=== PATIENT | female | born 1935 | race Caucasian/White ===

== ENCOUNTER → 2016-10-08 | Outpatient (CLI) | payer MEDICARE ==
[~2016-10-08] MED LIST: AMINOPHYLLIN200 MG PO; AMLODIPINE BESY10 MG PO; ASPIRIN81 M1 PO; B-121000 MCG PO; B-12500 MC1 PO; BRILINTA90 M1 PO; CALCIUM 600600 M2 PO; COREG3.125 MG PO; COZAAR25 M1 PO; DITROPAN XL5 MG PO; FENOFIBRATE145 M1 PO; GLUCOPHAGE1000 MG PO; GLUCOPHAGE500 M1 PO; HYDROCHLOROTHIA25 M1 PO; LEVOFLOXACIN500 MG PO; METFORMIN500 MG PO; METOPROLOL SUCC50 M2 PO; NATURE'S BLEND500 M1 PO; PHARMASSURE FO0.8 MG PO; PLAVIX75 M1 PO; POTASSIUM GLUC550 M1 PO; SIMVASTATIN20 MG PO; SYNTHROID0.137 MG PO; Synthroid,Lev125 MCG PO; TRICOR48 MG PO; ZOCOR40 MG PO
[2016-10-08 09:30] LABS: HEMOGLOBIN A1c 5.6 % (4.8-5.6)
[2016-10-08 09:49] LABS: ALBUMIN 3.8 gm/dl (3.1-4.5); BILIRUBIN, TOTAL 0.4 mg/dl (0.2-1.0); PHOSPHOROUS 3.5 mg/dL (2.5-4.9); POTASSIUM 4.4 mmol/L (3.5-5.1); TOTAL PROTEIN 7.1 gm/dL (6.4-8.2)
[2016-10-08 09:54] LABS: THYROID STIM HORMONE (HS) 2.7 uIU/ml (0.358-4.75)
[2016-10-08 10:11] LABS: VITAMIN D, 25-HYDROXY 46.3 ng/mL (30-100)
== END | disposition home or self-care (01) ==
LOC: LAB 08:36
PROVIDERS: Internal Medicine Endocrinology, Diabetes & Metabolism
DX: E11.9 Type 2 diabetes mellitus without complications (principal); E03.9 Hypothyroidism, unspecified; I10 Essential (primary) hypertension; E78.5 Hyperlipidemia, unspecified; E53.9 Vitamin B deficiency, unspecified; E55.9 Vitamin D deficiency, unspecified; R29.890 Loss of height; E78.00 Pure hypercholesterolemia, unspecified; F41.1 Generalized anxiety disorder

== ENCOUNTER → 2017-01-07 | Outpatient (CLI) | payer MEDICARE ==
[2017-01-07 10:14] LABS: HEMATOCRIT 42.6 % (37.0-47.0); HEMOGLOBIN 13.7 g/dl (12.0-16.0); MEAN CELL VOLUME 95.1 fl (81.0-99.0); MEAN CORPUSCULAR HGB 30.6 pg (27.0-31.0); MEAN CORPUSCULAR HGB CONC 32.2 g/dl (33.0-37.0); RED BLOOD COUNT 4.48 10*6/uL (4.10-5.10); RED CELL DISTRI WIDTH 13.7 % (0-14.5); WHITE BLOOD COUNT 5.5 10*3/uL (4.8-10.8)
[2017-01-07 10:36] LABS: HEMOGLOBIN A1c 5.8 % (4.8-5.6)
[2017-01-07 10:45] LABS: ALBUMIN 3.9 gm/dl (3.1-4.5); ALKALINE PHOSPHATASE 43 U/L (45-117); BILIRUBIN, TOTAL 0.5 mg/dl (0.2-1.0); BUN 25 mg/dl (7-24); CARBON DIOXIDE 28 mmol/L (21-32); CHLORIDE 107 mmol/L (98-107); CHOLESTEROL 132 mg/dL (<200); EST GLOM FILT AFRICAN AMERICAN > 60 ml/min; GLUCOSE 111 mg/dL (65-99); HDL CHOLESTEROL 65 mg/dl (40-60); LDL CHOLESTEROL 53 mg/dL (9-159); MAGNESIUM 1.8 mg/dL (1.5-2.1); PHOSPHOROUS 3.4 mg/dL (2.5-4.9); POTASSIUM 4.3 mmol/L (3.5-5.1); SGOT/AST 23 IU/L (3-35); SGPT/ALT 16 U/L (12-78); SODIUM 141 mmol/L (136-145); TOTAL PROTEIN 7.2 gm/dL (6.4-8.2); TRIGLYCERIDES 70 mg/dl (<150); VLDL CHOLESTEROL 14 mg/dL (6-40)
[2017-01-07 10:50] LABS: CEA 2.5 ng/mL
[2017-01-07 11:07] LABS: VITAMIN D, 25-HYDROXY 47.8 ng/mL (30-100)
== END | disposition home or self-care (01) ==
LOC: LAB 09:22
PROVIDERS: Internal Medicine Endocrinology, Diabetes & Metabolism
DX: Z13.220 Encounter for screening for lipoid disorders (principal); E11.9 Type 2 diabetes mellitus without complications; I10 Essential (primary) hypertension; E78.5 Hyperlipidemia, unspecified; E03.9 Hypothyroidism, unspecified; E53.9 Vitamin B deficiency, unspecified; E55.9 Vitamin D deficiency, unspecified; R29.890 Loss of height; M19.90 Unspecified osteoarthritis, unspecified site

== ENCOUNTER → 2017-04-29 | Outpatient (CLI) | payer MEDICARE ==
[2017-04-29 09:37] LABS: POTASSIUM 4.4 mmol/L (3.5-5.1)
[2017-04-29 10:03] LABS: CREATININE 1.41 mg/dL (0.55-1.02); FREE T4 1.39 ng/dl (0.76-1.46); PHOSPHOROUS 3.7 mg/dL (2.5-4.9); THYROID STIM HORMONE (HS) 4.38 uIU/ml (0.358-4.75)
[2017-04-29 10:53] LABS: VITAMIN D, 25-HYDROXY 42.2 ng/mL (30-100)
== END ==
LOC: LAB 08:24
PROVIDERS: Family Medicine
DX: E03.9 Hypothyroidism, unspecified (principal); I10 Essential (primary) hypertension; E11.9 Type 2 diabetes mellitus without complications; E78.5 Hyperlipidemia, unspecified; E53.9 Vitamin B deficiency, unspecified; E55.9 Vitamin D deficiency, unspecified; R29.890 Loss of height

== ENCOUNTER 2017-06-14 12:45 | Emergency (ER) | payer MEDICARE ==
[~2017-06-14] VITALS: Ht 157.4 cm; Wt 61.7 kg
[2017-06-14 13:19] LABS: BASO # 0.1 10*3/uL (0.0-0.1); BASO % 0.8 % (0.0-1.0); EOS # 0.4 10*3/uL (0.0-0.4); HEMATOCRIT 41.2 % (37.0-47.0); HEMOGLOBIN 13.4 g/dl (12.0-16.0); LYMPH # 1.3 10*3/uL (1.3-4.4); LYMPH % 17.7 % (27.0-41.0); MEAN CELL VOLUME 94.5 fl (81.0-99.0); MEAN CORPUSCULAR HGB 30.7 pg (27.0-31.0); MEAN CORPUSCULAR HGB CONC 32.5 g/dl (33.0-37.0); MEAN PLATELET VOLUME 9.5 fl (9.6-12.3); MONO # 0.7 10*3/uL (0.1-1.0); MONO % 9.1 % (3.0-9.0); NEUT # 4.8 10*3/uL (2.3-7.9); NEUT % 66.1 % (47.0-73.0); PLATELET COUNT AUTOMATED 217 10*3/uL (130-400); RED BLOOD COUNT 4.36 10*6/uL (4.10-5.10); RED CELL DISTRI WIDTH 13.3 % (0-14.5); WHITE BLOOD COUNT 7.3 10*3/uL (4.8-10.8)
[2017-06-14 13:29] LABS: ACT PARTIAL THROMBO TIME 23.4 SECONDS (20.8-31.5)
[2017-06-14 13:34] LABS: ALBUMIN 3.8 gm/dl (3.1-4.5); CREATININE 1.22 mg/dL (0.55-1.02); POTASSIUM 4.3 mmol/L (3.5-5.1); TOTAL PROTEIN 7.5 gm/dL (6.4-8.2)
[2017-06-14 13:35] LABS: TROPONIN I 0.019 ng/ml (<0.045)
[2017-06-14 16:51] VITALS: BP 159/67
== END 2017-06-14 17:25 | disposition home or self-care (01) ==
LOC: ED 12:45
PROVIDERS: Nurse Practitioner Family
DX: Z45.02 Encounter for adjustment and management of automatic implantable cardiac defibrillator (principal); E11.22 Type 2 diabetes mellitus with diabetic chronic kidney disease; I13.0 Hypertensive heart and chronic kidney disease with heart failure and stage 1 through stage 4 chronic kidney disease, or unspecified chronic kidney disease; I50.20 Unspecified systolic (congestive) heart failure; N18.3 Chronic kidney disease, stage 3 (moderate); E78.00 Pure hypercholesterolemia, unspecified; E03.9 Hypothyroidism, unspecified; Z79.899 Other long term (current) drug therapy; Z79.84 Long term (current) use of oral hypoglycemic drugs; Z90.710 Acquired absence of both cervix and uterus; Z90.49 Acquired absence of other specified parts of digestive tract

== ENCOUNTER 2017-07-31 19:48 | Inpatient (IN) | payer MEDICARE ==
[~2017-07-31] VITALS: Ht 157.4 cm; Wt 60.1 kg
--- NOTE | ~2017-07-31 | PR ---
[place], [place] PROGRESS NOTE NAME: PRASANTH REAL [facility] #: [id number] UNIT #: [id number] ROOM: 408 DOCTOR: KATIE MARTINEZ MD BIRTHDATE: [birth year] DOS: 08/02/2017 SUBJECTIVE: The patient is sitting up in a chair, resting, does not appear to be in any distress, does not have any complaints. Daughter is with her. PHYSICAL EXAMINATION: VITAL SIGNS: Blood pressure is 148/56, pulse of 60, respirations 18, temperature 97.9. LUNGS: Diminished breath sounds. HEART: Regular. ABDOMEN: Obese, soft, nontender. EXTREMITIES: Without any edema. LABORATORY DATA: Echocardiogram done yesterday shows an ejection fraction of only 20-25% and according to the echo report from before that was read by Dr. Ledbetter, there was no change and the ejection fraction was only about 20-25%. ASSESSMENT AND PLAN: 1. Cardiomyopathy with history of AICD placement, followed by Dr. Ledbetter. The patient and her daughter was upset that Dr. Ledbetter was not informed, so we will consult the previous junior systems administrator consult and place consult to Dr. Ledbetter. 2. Chest pain. The patient comes in with a heavy sensation in the chest. The recommendation was to do a stress test, which she had refused and she is unable to do regular walking stress test, so I will wait for Dr. Ledbetter to decide the plan of care for this patient. KATIE MARTINEZ MD CM:PNTRANS [id number] KATIE MARTINEZ MD 08/02/17 0921 interface
--- NOTE | ~2017-07-31 | WRIGHTHP ---
[place], [place] PATIENT HISTORY AND PHYSICAL EXAM NAME: PRASANTH REAL [facility] #: [id number] UNIT #: [id number] ROOM: 408 DOCTOR: ANGEL VELASCO MD BIRTHDATE: [birth year] DOS: 07/31/2017 HISTORY OF PRESENT ILLNESS: The patient is an 82-year-old female with a past medical history of: 1. Type 2 diabetes mellitus. 2. Benign essential hypertension. 3. Mixed hyperlipidemia. 4. Hypothyroidism. 5. 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 6. Internal cardiac defibrillator placement. 7. Chronic systolic type congestive heart failure. The patient presented to [facility] Emergency Department with complaints of heaviness sensation in her chest lasting about an hour, which resolved with giving her sublingual nitroglycerin, metoprolol and oxygen. The patient is asymptomatic now. The patient says she has previous history of coronary artery disease, but she does not want any further testing or treatment for it. After admission, the patient's troponin I levels went slightly high at 0.072, but now they are improving and the patient has been seen by plant operations engineer. The patient also complains of some swelling in the hands and feet, which is not evident now. REVIEW OF SYSTEMS: LUNGS: No increasing shortness of breath. GASTROINTESTINAL: No nausea, vomiting, diarrhea or constipation. CARDIOVASCULAR SYSTEM: Complains of heaviness in the chest for an hour. FAMILY HISTORY: Noncontributory. SOCIAL HISTORY: The patient lives at home with the help of her grandson.. ALLERGIES: No known drug allergies. HOME MEDICATIONS: The patient is taking losartan, Coreg, metformin, Plavix, aspirin, levothyroxine. PHYSICAL EXAMINATION: GENERAL: The patient is alert and oriented x 3, in no visible distress. HEENT AND NECK: Extraocular movements are intact. Sclerae are anicteric. Oral mucosa is moist and clean. No obvious facial weakness. Neck is supple without any lymphadenopathy. No thyromegaly. No JVD. No carotid arterial bruits. LUNGS: Clear to auscultation. No wheezing. No rhonchi. CARDIOVASCULAR SYSTEM: Heart rate is regular in rate and rhythm. S1 and S2 normally audible. No significant murmur or any other abnormal cardiac sounds. ABDOMEN: Soft, nontender. No obvious organomegaly. Bowel sounds are present. No obvious herniation. EXTREMITIES: Without significant cyanosis or edema. Warm to touch. CENTRAL NERVOUS SYSTEM: Alert and oriented x 3. Cranial nerves II-XII are intact. Speech is normal. The patient is able to move all extremities. Normal [place], [place] PATIENT HISTORY AND PHYSICAL EXAM [facility]: [id number] UNIT #: [id number] ROOM: [facility] DOCTOR: ANGEL VELASCO MD BIRTHDATE: [birth year] muscle strength. Deep tendon reflexes are equal on both sides. Plantars were downgoing. IMPRESSION AND PLAN: 1. Slight elevation of troponin I levels up to 0.072, now reduced to 0.047 with complaints of heaviness in her chest prior to admission. The patient is symptom free now. The patient seen by Cardiology and she has completely refused any further testing except for she will allow an echocardiogram for further evaluation. Cardiology wants to treat her conservatively considering her request. The patient is already on aspirin and Plavix and her treatment for ischemic cardiomyopathy is being optimized and hopefully she can be discharged to home if asymptomatic in a couple of days. 2. History of coronary artery disease of the sioux vessels with ischemic cardiomyopathy and reduced left ventricular ejection fraction. Echocardiogram is pending. The patient has implantable cardioverter-defibrillator placement. 3. Benign essential hypertension. Blood pressure will be monitored and treated. 4. Mixed hyperlipidemia, will be followed and treated. 5. Type 2 diabetes mellitus. Blood sugar is to be checked and controlled. 6. The patient is being monitored carefully in the hospital. ANGEL VELASCO MD CM:HISPHYS:PATIENT HISTORY AND PHYSICAL EXAMINATION ANGEL VELASCO MD 08/01/1747 interface
[2017-07-31 19:50] VITALS: BP 166/77
[2017-07-31 20:15] LABS: BASO % 0.7 % (0.0-1.0); EOS # 0.4 10*3/uL (0.0-0.4); EOS % 6.3 % (1.0-4.0); HEMATOCRIT 38.7 % (37.0-47.0); HEMOGLOBIN 12.8 g/dl (12.0-16.0); LYMPH # 1.3 10*3/uL (1.3-4.4); LYMPH % 21.3 % (27.0-41.0); MEAN CELL VOLUME 94.9 fl (81.0-99.0); MEAN CORPUSCULAR HGB 31.4 pg (27.0-31.0); MEAN CORPUSCULAR HGB CONC 33.1 g/dl (33.0-37.0); MEAN PLATELET VOLUME 9.5 fl (9.6-12.3); MONO # 0.6 10*3/uL (0.1-1.0); MONO % 9.4 % (3.0-9.0); NEUT # 3.7 10*3/uL (2.3-7.9); PLATELET COUNT AUTOMATED 178 10*3/uL (130-400); RED BLOOD COUNT 4.08 10*6/uL (4.10-5.10); RED CELL DISTRI WIDTH 13.1 % (0-14.5); WHITE BLOOD COUNT 5.9 10*3/uL (4.8-10.8)
[2017-07-31 20:25] LABS: ACT PARTIAL THROMBO TIME 23.9 SECONDS (20.8-31.5)
[2017-07-31 20:33] LABS: ALBUMIN 3.7 gm/dl (3.1-4.5); CREATININE 1.61 mg/dL (0.55-1.02); POTASSIUM 4.4 mmol/L (3.5-5.1); TROPONIN I 0.025 ng/ml (<0.045)
[2017-07-31 21:21] VITALS: BP 166/71
[2017-07-31 22:20] VITALS: BP 156/58
[2017-07-31] MEDS ORDERED: TRICOR145 M1 PO (23:03)
[2017-07-31] MEDS ORDERED: CLOPIDOGREL75 MG PO (23:04)
[2017-07-31] MEDS ORDERED: ASPIR LOW81 MG PO (23:04)
[2017-07-31] MEDS ORDERED: NITROSTAT0.3 M1 SL ×2 (23:17→23:20)
[2017-08-01 08:00] VITALS: BP 142/74
[2017-08-01 11:43] VITALS: BP 144/61
[2017-08-01 16:00] VITALS: BP 160/59
[2017-08-01 20:00] VITALS: BP 133/57
[2017-08-02] VITALS: BP 148/56
[2017-08-02 06:55] LABS: CREATININE 1.45 mg/dL (0.55-1.02); POTASSIUM 3.8 mmol/L (3.5-5.1)
[2017-08-02] MEDS ORDERED: LASIX20 MG PO (11:30)
[2017-08-02 12:00] VITALS: BP 130/59
== END 2017-08-02 13:35 | disposition home or self-care (01) | DRG 303 ==
LOC: ED 19:48 → 4E 21:23 → EDHOLD 21:23 → 4E 21:50
PROVIDERS: Emergency Medicine Emergency Medical Services; Internal Medicine Cardiovascular Disease
DX: I25.10 Atherosclerotic heart disease of native coronary artery without angina pectoris (principal); E11.22 Type 2 diabetes mellitus with diabetic chronic kidney disease; I50.22 Chronic systolic (congestive) heart failure; I13.0 Hypertensive heart and chronic kidney disease with heart failure and stage 1 through stage 4 chronic kidney disease, or unspecified chronic kidney disease; I25.5 Ischemic cardiomyopathy; E86.1 Hypovolemia; F41.9 Anxiety disorder, unspecified; E78.2 Mixed hyperlipidemia; N18.3 Chronic kidney disease, stage 3 (moderate); E78.00 Pure hypercholesterolemia, unspecified; M81.0 Age-related osteoporosis without current pathological fracture; E03.9 Hypothyroidism, unspecified; Z90.49 Acquired absence of other specified parts of digestive tract; Z90.710 Acquired absence of both cervix and uterus; Z82.3 Family history of stroke; I25.2 Old myocardial infarction; Z95.810 Presence of automatic (implantable) cardiac defibrillator; Z87.891 Personal history of nicotine dependence; Z79.82 Long term (current) use of aspirin; Z79.899 Other long term (current) drug therapy; Z98.61 Coronary angioplasty status

== ENCOUNTER → 2017-08-13 | Outpatient (CLI) | payer MEDICARE ==
[~2017-08-13] MED LIST changes: +ASPIR LOW81 MG PO; +CLOPIDOGREL75 MG PO; +LASIX20 MG PO; +NITROSTAT0.3 M1 SL; +TRICOR145 M1 PO
--- NOTE | ~2017-08-13 | ST ---
[place], [place] EXERCISE STRESS TEST REPORT [id number] UNIT #: [id number] ROOM: DOCTOR: LETA SEARS MD BIRTHDATE: [birth year] DOS: 08/13/2017 LEXISCAN PORTION OF THE LEXISCAN CARDIOLITE Baseline cardiogram, 100% paced rhythm. With Lexiscan, no new EKG changes. The patient did have some shortness of breath. No chest discomfort. Blood pressure and heart rate response was normal. FINAL IMPRESSION: Indeterminate test secondary to the underlying paced rhythm. No new EKG changes. No chest discomfort. Has shortness of breath. Blood pressure and heart rate normal. Nuclear images will be reported separately. LETA SEARS MD CM:STRESS:EXERCISE STRESS TEST REPORT [id number] LETA SEARS MD
== END | disposition home or self-care (01) ==
LOC: CARD 01:34
DX: I25.5 Ischemic cardiomyopathy (principal); R53.81 Other malaise; R94.39 Abnormal result of other cardiovascular function study

== ENCOUNTER → 2017-08-24 | Outpatient (CLI) | payer MEDICARE ==
[2017-08-24 09:28] LABS: CREATININE 1.32 mg/dL (0.55-1.02); PHOSPHOROUS 3.4 mg/dL (2.5-4.9); POTASSIUM 4.6 mmol/L (3.5-5.1)
[2017-08-24 10:13] LABS: THYROID STIM HORMONE (HS) 7.63 uIU/ml (0.358-4.75)
[2017-08-24 10:26] LABS: VITAMIN D, 25-HYDROXY 30.6 ng/mL (30-100)
== END | disposition home or self-care (01) ==
LOC: LAB 08:08
PROVIDERS: Internal Medicine Endocrinology, Diabetes & Metabolism
DX: E78.5 Hyperlipidemia, unspecified (principal); I10 Essential (primary) hypertension; E11.9 Type 2 diabetes mellitus without complications; E03.9 Hypothyroidism, unspecified; E53.9 Vitamin B deficiency, unspecified; E55.9 Vitamin D deficiency, unspecified; R29.890 Loss of height

== ENCOUNTER → 2017-10-12 | Outpatient (CLI) | payer MEDICARE | END | disposition home or self-care (01) | LOC: LAB 10:30 | DX: E03.9 Hypothyroidism, unspecified (principal) ==

== ENCOUNTER → 2017-11-27 | Outpatient (CLI) | payer MEDICARE ==
[2017-11-27 12:24] LABS: CREATININE 1.16 mg/dL (0.55-1.02); PHOSPHOROUS 3.4 mg/dL (2.5-4.9); POTASSIUM 4.4 mmol/L (3.5-5.1)
[2017-11-27 12:33] LABS: THYROID STIM HORMONE (HS) 1.35 uIU/ml (0.358-4.75)
[2017-11-27 12:55] LABS: VITAMIN D, 25-HYDROXY 30.7 ng/mL (30-100)
== END | disposition home or self-care (01) ==
LOC: LAB 11:10
PROVIDERS: Internal Medicine Endocrinology, Diabetes & Metabolism
DX: E78.5 Hyperlipidemia, unspecified (principal); E11.9 Type 2 diabetes mellitus without complications; I10 Essential (primary) hypertension; E03.9 Hypothyroidism, unspecified; E53.9 Vitamin B deficiency, unspecified; E55.9 Vitamin D deficiency, unspecified; R29.890 Loss of height

== ENCOUNTER → 2017-12-06 | Outpatient (CLI) | payer MEDICARE ==
[2017-12-06 17:48] LABS: BILIRUBIN NEGATIVE (NEGATIVE); BLOOD 3+ (NEGATIVE); CLARITY CLOUDY (CLEAR); COLOR YELLOW (YELLOW); GLUCOSE NEGATIVE (NEGATIVE); KETONE NEGATIVE (NEGATIVE); LEUKO ESTERASE 3+ (NEGATIVE); NITRITE POSITIVE (NEGATIVE); UROBILINOGEN 0.2 E.U./dl (0.2-1.0)
[2017-12-06 17:54] LABS: RBC 51-100 rbc/hpf (0-2); WBC 51-100 wbc/hpf (0-5)
[2017-12-06 17:55] LABS: BACTERIA 2+
== END | disposition home or self-care (01) ==
LOC: LAB 17:28
PROVIDERS: Urology
DX: R30.0 Dysuria (principal)

== ENCOUNTER → 2018-02-27 | Outpatient (CLI) | payer MEDICARE ==
[2018-02-27 10:27] LABS: BILIRUBIN NEGATIVE (NEGATIVE); BLOOD NEGATIVE (NEGATIVE); CLARITY CLEAR (CLEAR); COLOR YELLOW (YELLOW); GLUCOSE NEGATIVE (NEGATIVE); KETONE NEGATIVE (NEGATIVE); LEUKO ESTERASE 1+ (NEGATIVE); NITRITE NEGATIVE (NEGATIVE); UROBILINOGEN 0.2 E.U./dl (0.2-1.0)
[2018-02-27 10:44] LABS: BACTERIA TRACE; WBC 16-20 wbc/hpf (0-5)
[2018-02-27 11:16] LABS: CREATININE 1.5 mg/dL (0.55-1.02); PHOSPHOROUS 3.2 mg/dL (2.5-4.9); POTASSIUM 4.1 mmol/L (3.5-5.1)
[2018-02-27 11:22] LABS: THYROID STIM HORMONE (HS) 1.32 uIU/ml (0.358-4.75)
[2018-02-27 11:35] LABS: VITAMIN D, 25-HYDROXY 30.9 ng/mL (30-100)
[2018-02-28 08:08] LABS: LDL CHOLESTEROL (DIRECT) 71 mg/dL (0-99)
== END | disposition home or self-care (01) ==
LOC: LAB 09:42
PROVIDERS: Internal Medicine Endocrinology, Diabetes & Metabolism; Urology
DX: C67.9 Malignant neoplasm of bladder, unspecified (principal); E11.9 Type 2 diabetes mellitus without complications; I10 Essential (primary) hypertension; E78.5 Hyperlipidemia, unspecified; E03.9 Hypothyroidism, unspecified; E53.9 Vitamin B deficiency, unspecified; E55.9 Vitamin D deficiency, unspecified; R29.890 Loss of height

== ENCOUNTER → 2018-04-03 | Outpatient (CLI) | payer MEDICARE | END | disposition home or self-care (01) | LOC: CARD 03-27 13:00 | DX: I25.5 Ischemic cardiomyopathy (principal) ==

== ENCOUNTER → 2018-06-18 | Outpatient (CLI) | payer MEDICARE ==
[~2018-06-18] MED LIST changes: +CALCIUM CITRAT1 EAC9 PO; +COMPLETE TABLE1 EACH PO; +COREG12.5 M1 PO; -FENOFIBRATE145 M1 PO; +FENOFIBRATE160 MG PO; +FUROSEMIDE40 MG PO; +MAGNESIUM250 M1 PO; +METFORMIN HYDR500 MG PO; -METFORMIN500 MG PO; +NIACIN500 M5 PO; +POTASSIUM CHLO20 ME4 PO; +VITAMIN D50000 UNIT PO
== END | disposition home or self-care (01) ==
DX: J98.11 Atelectasis (principal); I25.10 Atherosclerotic heart disease of native coronary artery without angina pectoris

== ENCOUNTER → 2018-06-23 | Outpatient (CLI) | payer MEDICARE ==
[2018-06-23 09:33] LABS: POTASSIUM 4.2 mmol/L (3.5-5.1)
[2018-06-23 09:49] LABS: CREATININE 1.21 mg/dL (0.55-1.02); PHOSPHOROUS 3.5 mg/dL (2.5-4.9); THYROID STIM HORMONE (HS) 0.433 uIU/ml (0.358-4.75)
[2018-06-23 10:06] LABS: VITAMIN D, 25-HYDROXY 65.4 ng/mL (30-100)
[2018-06-23 14:35] LABS: BILIRUBIN NEGATIVE (NEGATIVE); BLOOD TRACE-INTACT (NEGATIVE); CLARITY CLEAR (CLEAR); COLOR YELLOW (YELLOW); GLUCOSE NEGATIVE (NEGATIVE); KETONE NEGATIVE (NEGATIVE); LEUKO ESTERASE NEGATIVE (NEGATIVE); NITRITE NEGATIVE (NEGATIVE); SPECIFIC GRAVITY 1.015 (1.005-1.030); UROBILINOGEN 0.2 E.U./dl (0.2-1.0)
[2018-06-23 14:42] LABS: BACTERIA 1+; EPITHELIAL CELLS 0-2
[2018-06-24 08:12] LABS: LDL CHOLESTEROL (DIRECT) 97 mg/dL (0-99)
== END | disposition home or self-care (01) ==
LOC: LAB 08:08
PROVIDERS: Internal Medicine Endocrinology, Diabetes & Metabolism; Urology
DX: C67.9 Malignant neoplasm of bladder, unspecified (principal); I10 Essential (primary) hypertension; E11.9 Type 2 diabetes mellitus without complications; E78.5 Hyperlipidemia, unspecified; E03.9 Hypothyroidism, unspecified; E53.9 Vitamin B deficiency, unspecified; E55.9 Vitamin D deficiency, unspecified; R29.890 Loss of height

== ENCOUNTER → 2018-10-27 | Outpatient (CLI) | payer MEDICARE ==
[2018-10-27 14:27] LABS: BILIRUBIN NEGATIVE (NEGATIVE); BLOOD NEGATIVE (NEGATIVE); CLARITY CLEAR (CLEAR); COLOR YELLOW (YELLOW); GLUCOSE NEGATIVE (NEGATIVE); KETONE NEGATIVE (NEGATIVE); LEUKO ESTERASE TRACE (NEGATIVE); NITRITE NEGATIVE (NEGATIVE); PH 6.5 (5.0-9.0); UROBILINOGEN 0.2 E.U./dl (0.2-1.0)
[2018-10-27 14:37] LABS: BACTERIA TRACE; EPITHELIAL CELLS 0-4
== END | disposition home or self-care (01) ==
LOC: LAB 13:42
PROVIDERS: Urology
DX: C67.9 Malignant neoplasm of bladder, unspecified (principal); R30.0 Dysuria

== ENCOUNTER → 2018-11-06 | Outpatient (CLI) | payer MEDICARE ==
[2018-11-06 09:22] LABS: CREATININE 1.52 mg/dL (0.55-1.02)
[2018-11-06 09:29] LABS: THYROID STIM HORMONE (HS) 1.81 uIU/ml (0.358-4.75)
[2018-11-07 08:13] LABS: LDL CHOLESTEROL (DIRECT) 73 mg/dL (0-99)
== END | disposition home or self-care (01) ==
LOC: LAB 01:29 → US 01:29
PROVIDERS: Internal Medicine Endocrinology, Diabetes & Metabolism
DX: R60.0 Localized edema (principal); M71.21 Synovial cyst of popliteal space [Baker], right knee; E11.9 Type 2 diabetes mellitus without complications; I10 Essential (primary) hypertension; E78.5 Hyperlipidemia, unspecified; E03.9 Hypothyroidism, unspecified; E53.9 Vitamin B deficiency, unspecified; E55.9 Vitamin D deficiency, unspecified

== ENCOUNTER 2018-12-25 22:31 | Inpatient (IN) | payer MEDICARE ==
[~2018-12-25] VITALS: Ht 154.9 cm; Wt 60.5 kg
[2018-12-25] VITALS (7 sets, daily range): BP systolic 132–169; BP diastolic 64–94
--- NOTE | ~2018-12-25 | EKG ---
[place], [place] ELECTROCARDIOGRAM REPORT NAME: PRASANTH REAL UNIT #: [id number] ROOM: [facility] DOCTOR: EPIPHANY DRAFT REPORT BIRTHDATE: [birth year] [facility] Test Date: 2018-12-25 Test Time: 22:48:41 Pat Name: PRASANTH REAL Department: Room: [facility] Gender: F Facility Examiner: : 1935 Requested By: ERICA ANTHONY Order Number: [id number] Reading MD: Dot Diaz MD Measurements Intervals [place] Rate: 82 P: 23 MS: 158 QRS: -45 QRSD: 152 T: -48 QT: 400 QTc: 468 Interpretive Statements Atrial-sensed ventricular-paced complexes No further analysis attempted due to paced rhythm Electronically Signed On 12-26-2018 5:03:46 PDT by Dot Diaz MD CM:EKGRPT:ELECTROCARDIOGRAM REPORT [id number] ERICA ANTHONY MD EPIPHANY DRAFT REPORT ERICA ANTHONY MD
--- NOTE | ~2018-12-25 | EKG ---
[place], [place] ELECTROCARDIOGRAM REPORT NAME: PRASANTH REAL UNIT #: [id number] ROOM: [facility] DOCTOR: EPIPHANY DRAFT REPORT BIRTHDATE: [birth year] [facility] Test Date: 2018-12-26 Test Time: 01:07:38 Pat Name: PRASANTH REAL Department: Room: [facility] Gender: F Community Manager: Shazia Ward : 1935 Requested By: ERICA ANTHONY Order Number: [id number] Reading MD: Dot Diaz MD Measurements Intervals [place] Rate: 70 P: 52 SC: 143 QRS: -32 QRSD: 142 T: 86 QT: 409 QTc: 442 Interpretive Statements Atrial-sensed ventricular-paced rhythm No further analysis attempted due to paced rhythm Baseline wander in lead(s) V2,V3 Electronically Signed On 12-26-2018 5:03:49 PDT by Dot Diaz MD CM:EKGRPT:ELECTROCARDIOGRAM REPORT [id number] ERICA ANTHONY MD EPIPHANY DRAFT REPORT ERICA ANTHONY MD
--- NOTE | ~2018-12-25 | EKG ---
[place], [place] ELECTROCARDIOGRAM REPORT NAME: PRASANTH REAL UNIT #: [id number] ROOM: [facility] DOCTOR: EPIPHANY DRAFT REPORT BIRTHDATE: [birth year] [facility] Test Date: 2018-12-26 Test Time: 04:22:18 Pat Name: PRASANTH REAL Department: Room: [facility] Gender: F Health Navigator: Shazia Ward : 1935 Requested By: ERICA ANTHONY Order Number: [id number] Reading MD: Dot Diaz MD Measurements Intervals [place] Rate: 62 P: 0 ME: 211 QRS: -53 QRSD: 155 T: -79 QT: 561 QTc: 570 Interpretive Statements Atrial-sensed ventricular-paced rhythm No further analysis attempted due to paced rhythm Baseline wander in lead(s) V3 Electronically Signed On 12-26-2018 5:06:43 PDT by Dot Diaz MD CM:EKGRPT:ELECTROCARDIOGRAM REPORT [id number] ERICA ANTHONY MD EPIPHANY DRAFT REPORT ERICA ANTHONY MD
--- NOTE | ~2018-12-25 | WRIGHTHP ---
[place], [place] PATIENT HISTORY AND PHYSICAL EXAM NAME: PRASANTH RA[facility] #: [id number] UNIT #: [id number] ROOM: [facility] DOCTOR: KATIE MARTINEZ MD BIRTHDATE: [birth year] DOS: 12/26/2018 HISTORY OF PRESENT ILLNESS: The patient is 83 years old. The patient is known to me from a previous admission. She comes in with complaints of shortness of breath to the Emergency Room. The patient arrived in the ER, had a chest x-ray which showed mild pulmonary vascular congestion and she was admitted. She was given one dose of Lasix 40 in the Emergency Room. She denies having any chest pains or palpitations, does not have any fever or chills, does not have any abdominal pain, nausea, and emesis. During the night, 3 sets of troponins were done and the troponins did come back pretty high at 22 and later on at 55. Dr. Ledbetter, her cloth examiner hand, was consulted, but unfortunately he is unable to take her to [facility], so we have asked Dr. Diaz for an opinion. This morning, the patient is resting comfortably, does not have any new complaints. PAST MEDICAL HISTORY: Significant for: 1. Coronary artery disease with the last catheterization done in 2016, shows significant disease with an ejection fraction of 20% at that time. 2. Cardiomyopathy with the last echocardiogram in 2018, which showed an ejection fraction of 20-25%. 3. Coronary artery disease with history of balloon angioplasty of left circ, two blockages in the left circ in 2016. 4. History of AICD placement. 5. History of hypothyroidism. MEDICATIONS: List of meds is not completely sure yet, but most likely is Coreg, vitamin D, Plavix, fenofibrate, folic acid, Lasix, levothyroxine, losartan, magnesium, metformin, potassium, and simvastatin. SOCIAL HISTORY: Nonsmoker. Lives at home alone. PHYSICAL EXAMINATION: VITAL SIGNS: Graphic trend shows a pressure of 134/61, pulse of 60, respirations 18, temperature 98.0. LUNGS: Diminished breath sounds. No wheezes, rales or rhonchi heard. HEART: Regular. ABDOMEN: Obese. EXTREMITIES: Without any edema. LABORATORY DATA: EKG showed a paced rhythm. Troponin was 22.9, which went up to 55.0. ASSESSMENT AND PLAN: 1. Acute non-ST elevation myocardial infarction. The patient is being seen by Dr. Diaz this morning and will decide on further treatment plan, discussed with Dr. Ledbetter. He had angioplasty in 2016. Overall, prognosis remains poor and guarded. 2. History of severe cardiomyopathy, status post AICD pacemaker placement. 3. Benign hypertension, controlled. 4. Congestive heart failure, this is acute systolic. The patient was given diuretics with clinical improvement. Chest x-ray has not been ordered yet. [place], [place] PATIENT HISTORY AND PHYSICAL EXAM NAME: PRASANTH REAL UNIT #: [id number] ROOM: [facility] DOCTOR: KATIE MARTINEZ MD BIRTHDATE: [birth year] KATIE MARTINEZ MD CM:HISPHYS:PATIENT HISTORY AND PHYSICAL EXAMINATION [id number] KATIE MARTINEZ MD 12/26/18 0847 interface
[~2018-12-25 22:31] MED LIST changes: -CALCIUM CITRAT1 EAC9 PO; -COMPLETE TABLE1 EACH PO; -COREG12.5 M1 PO; -FUROSEMIDE40 MG PO; -MAGNESIUM250 M1 PO; -NIACIN500 M5 PO; -POTASSIUM CHLO20 ME4 PO; -VITAMIN D50000 UNIT PO
--- NOTE | 2018-12-25 22:40 | NUR ---
PT DOES REPORT MIDSTERNAL CHEST PAIN.SOB OVER PAST 3 HOURS INCREASING.
[2018-12-25 22:52] LABS: BASO # 0.1 10*3/uL (0.0-0.1); BASO % 0.8 % (0.0-1.0); EOS # 0.3 10*3/uL (0.0-0.4); EOS % 3.1 % (1.0-4.0); HEMATOCRIT 42.7 % (37.0-47.0); HEMOGLOBIN 13.5 g/dl (12.0-16.0); LYMPH # 0.9 10*3/uL (1.3-4.4); LYMPH % 9.6 % (27.0-41.0); MEAN CELL VOLUME 97.9 fl (81.0-99.0); MEAN CORPUSCULAR HGB CONC 31.6 g/dl (33.0-37.0); MEAN PLATELET VOLUME 9.8 fl (9.6-12.3); MONO # 0.7 10*3/uL (0.1-1.0); MONO % 7.9 % (3.0-9.0); NEUT # 7.1 10*3/uL (2.3-7.9); NEUT % 78.2 % (47.0-73.0); PLATELET COUNT AUTOMATED 239 10*3/uL (130-400); RED BLOOD COUNT 4.36 10*6/uL (4.10-5.10); RED CELL DISTRI WIDTH 13.2 % (0-14.5); WHITE BLOOD COUNT 9.1 10*3/uL (4.8-10.8)
[2018-12-25 23:03] LABS: ACT PARTIAL THROMBO TIME 22.5 SECONDS (20.0-32.1)
[2018-12-25 23:08] LABS: ALBUMIN 3.7 gm/dl (3.1-4.5); CREATININE 1.58 mg/dL (0.55-1.02); POTASSIUM 4.2 mmol/L (3.5-5.1); TOTAL PROTEIN 7.5 gm/dL (6.4-8.2)
--- NOTE | 2018-12-25 23:13 | NUR ---
PT MEDICATED PER EMAR WITH LASIX IV.INFUSION OF NITROGLYCERIN INITIATED AT 5MCG/MIN.
[2018-12-25 23:14] LABS: TROPONIN I 0.28 ng/ml (<0.045)
--- NOTE | 2018-12-25 23:14 | NUR ---
LAB CALLED TROPONIN 0.280 DR AGARWAL NOTIFIED
[2018-12-25] MEDS ORDERED: VITAMIN D50000 UNIT PO (23:38)
[2018-12-25] MEDS ORDERED: POTASSIUM CHLO20 ME4 PO (23:40)
[2018-12-25] MEDS ORDERED: MAGNESIUM250 M1 PO (23:42)
[2018-12-25] MEDS ORDERED: COMPLETE TABLE1 EACH PO (23:42)
[2018-12-25] MEDS ORDERED: CALCIUM CITRAT1 EAC9 PO (23:43)
[2018-12-25] MEDS ORDERED: FUROSEMIDE40 MG PO (23:44)
[2018-12-26] VITALS (7 sets, daily range): BP systolic 120–142; BP diastolic 51–66
--- NOTE | 2018-12-26 00:30 | NUR ---
REMOVED PATIENT FROM BIPAP. PLACED ON 4L NASAL CANNULA. SPO2 98-99%. TOLERATING WELL.
--- NOTE | 2018-12-26 00:35 | NUR ---
RESPIRATORY AT BEDSIDE PER MD, PT PLACED ON 4L O2 VIA NC SAT 99%.
--- NOTE | 2018-12-26 00:44 | NUR ---
PT HAS 2 SMALL SKIN TEARS TO LEFT AND RIGHT LOWER EXTREMITIES.PT STATES SHE HAD FLUID BLISTERS FROM HER EDEMA AND SHE POPPED THEM A FEW DAYS AGO.PT REFUSES TO HAVE PHOTOS TAKEN AT THIS TIME.
--- NOTE | 2018-12-26 00:49 | NUR ---
PER MD ZUNIGA VERBAL ORDER, INFUSION OF NITROGLYCERIN DC'D AT THIS TIME.
--- NOTE | 2018-12-26 00:56 | NUR ---
MRSA SWAB COLLECTED, LABELED AND SENT TO LAB.
--- NOTE | 2018-12-26 01:03 | NUR ---
PT DAUGHTER TOOK PT MEDICATION BOTTLES AND CLOTHING HOME WITH HER.REQUEST PASSWORD OF "ISAIAH".
--- NOTE | 2018-12-26 01:11 | NUR ---
NURSE TO NURSE REPORT GIVEN TO RN TANO IN [facility].PT TO UNIT AT THIS TIME.
--- NOTE | 2018-12-26 01:20 | NUR ---
A 83 YEAR OLD FEMALE admitted to ICCU, under the services of KATIE Durán MD with a diagnosis of RESPIRATORY FAILURE. Chief complaint is MIDSTERNAL CHEST PAIN, SOB. Patient arrived via stretcher from ER. Monitor applied. Initial assessment completed. Vital signs taken and recorded. KATIE DURÁN MD notified of admission to the unit. Orders received. See assessment for past medical history, medications and allergies. Patient and/or family oriented to unit. [facility] visitation policy reviewed. Clothing/patient valuable form completed. RACHEL MÉNDEZ
--- NOTE | 2018-12-26 01:50 | NUR ---
UNABLE TO VERIFY PT HOME MEDS. DR MARTINEZ NOTIFIED AND SAID TO HAVE THE PHARMACY CALLED IN AM FOR VERIFICATION.
--- NOTE | 2018-12-26 01:55 | NUR ---
DR SEARS NOTIFIED OF CONSULT. ORDER TO CHANGE CONSULT TO DR ZAMARRIPA D/T PT NEEDING A HEART CATH AND HAPPY NOT HAVING SURGICAL STAFF FOR THE WEEKEND.
--- NOTE | 2018-12-26 02:00 | NUR ---
DR ZAMARRIPA NOTIFIED OF CONSULT. NEW ORDERS RECEIVED.
--- NOTE | 2018-12-26 05:09 | NUR ---
PRASANTH REAL [id number] Please refer to the physician's history and physical for past medical history, comorbid conditions, and allergies. Diagnosis: RESPIRATORY FAILURE, CHEST PAIN, ELEVATED TROPONIN To Score: 20,LOW OR NO RISK WOUND DESCRIPTIONS: Wound Number: 1 Location of the wound: right lower extremity proximal Thickness: Partial Size: 0.4cm x 0.3cm x 0.1cm Tunneling: none Undermining: none Sinus Tract: none Presence of Exudate: none Amount: None Color: Red Odor: None Periwound Skin Appearance: Erythema Wound edges: approximated Pain (associated with wound): none at time of assessment How does patient state this happened? pt stated she was swollen and they areas were blisters that she picked open Wound Number: 2 Location of the wound: right lower extremity distal area lateral Thickness: Partial Size: 1.1cm x 1.4cm x <0.1cm Tunneling: none Undermining: none Sinus Tract: none Presence of Exudate: none Amount: None Color: pink Odor: None Periwound Skin Appearance: Erythema Wound edge: intact serum filled blister Pain (associated with wound): none at time of assessment How does patient state this happened? pt stated she was swollen and they areas were blisters that she picked open Wound Number: 3 Location of the wound: left lower extremity Thickness: Partial Size: 0.6cm x 0.4cm x 0.1cm Tunneling: none Undermining: none Sinus Tract: none Presence of Exudate: none Amount: None Color: Red Odor: None Periwound Skin Appearance: Erythema Wound edges: approximated Pain (associated with wound): none at time of assessment How does patient state this happened? pt stated she was swollen and they areas were blisters that she picked open Bilateral heels are red and blanchable at time of assessment. No open areas noted at time of assessment. No drainage noted at time of assessment. Surface the patient is resting on: XPRT SKIN PREVENTION RECOMMENDATION: 1. Pressure redistribution support surface as appropriate 2. Elevate heels 3. Remove boots/TEDS every shift and reapply 4. Head of bed 30 degrees as tolerated 5. Assess nutrition and hydration 6. Manage moisture 7. Avoid the use of containment devices while in bed 8. Use absorptive products on surfaces limit layers of linens on bed 9. Turn and reposition every 1-2 hours in bed and every 1 hour in chair as tolerated 10. Weight shifts every 15 minutes while up in chair 11. Offloading with pillows or device to keep heels elevated off bed 12. Monitor skin at least every shift 13. Inspect under medical devices twice a day WOUND TREATMENT RECOMMENDATIONS: Cleanse right lower extremity proximal and left lower extremity with nss and apply sureprep around the wound hydrogel to wound bed and cover with optifoam gentle. Apply sureprep to right lower extremity distal area lateral allow time to dry then cover with optifoam gentle. Heel raiser pro boots to bilateral feet while in bed. Venous and arterial studies due to wounds to bilateral lower extremities. Consult podiatry due to open areas to bilateral lower extremities.
[2018-12-26 05:34] LABS: CREATININE 1.54 mg/dL (0.55-1.02); POTASSIUM 4.2 mmol/L (3.5-5.1)
--- NOTE | 2018-12-26 05:55 | NUR ---
DR ZAMARRIPA NOTIFIED OF TROPONIN 55.5. STATES HE IS GOING TO START MAKING CALLS FOR TRANSFER TO [facility].
--- NOTE | 2018-12-26 08:15 | NUR ---
DR MARTINEZ HERE TO SEE PATIENT & HAS HAD MULTIPLE CALLS BETWEEN HERSELF & DR SEARS, DR POPE & DAUGHTER. TRYING TO GET CATH REPORT FROM [facility]. CATH REPORT FOUND IN OUR SYSTEM BUT WE ARE UNABLE TO PRINT IT IT COMES FROM ANOTHER FACILITY. DR POPE HERE AND SPEAKING WITH DR MARTINEZ ABOUT CATH REPORT. DAUGHTER IS IN ROUTE TO [facility] TO TALK WITH MOTHER.
[2018-12-26] MEDS ORDERED: COREG12.5 M1 PO (08:40)
[2018-12-26] MEDS ORDERED: NIACIN500 M5 PO (08:51)
[2018-12-26] MEDS ORDERED: NATURE'S BLEND500 M1 PO (08:53)
--- NOTE | 2018-12-26 09:51 | NUR ---
LEFT VIA AMBULANCE - REPORT TO [facility] LARRY CAR OPERATOR. HEPARIN DRIP AT 14 UNITS/KG/HR
== END 2018-12-26 09:51 | disposition short-term general hospital (02) | DRG 280 ==
LOC: ED 22:31 → EDHOLD 12-26 00:47 → ICCU 12-26 00:47
PROVIDERS: Emergency Medicine Emergency Medical Services; Internal Medicine Cardiovascular Disease; ADMIT Internal Medicine
DX: I21.3 ST elevation (STEMI) myocardial infarction of unspecified site (principal); J96.90 Respiratory failure, unspecified, unspecified whether with hypoxia or hypercapnia; I50.21 Acute systolic (congestive) heart failure; I13.0 Hypertensive heart and chronic kidney disease with heart failure and stage 1 through stage 4 chronic kidney disease, or unspecified chronic kidney disease; N18.3 Chronic kidney disease, stage 3 (moderate); I25.5 Ischemic cardiomyopathy; E11.22 Type 2 diabetes mellitus with diabetic chronic kidney disease; E78.5 Hyperlipidemia, unspecified; I25.10 Atherosclerotic heart disease of native coronary artery without angina pectoris; M81.0 Age-related osteoporosis without current pathological fracture; E03.9 Hypothyroidism, unspecified; E78.00 Pure hypercholesterolemia, unspecified; Z85.51 Personal history of malignant neoplasm of bladder; Z79.82 Long term (current) use of aspirin; Z85.038 Personal history of other malignant neoplasm of large intestine; I25.2 Old myocardial infarction; Z90.710 Acquired absence of both cervix and uterus; Z90.49 Acquired absence of other specified parts of digestive tract; Z82.49 Family history of ischemic heart disease and other diseases of the circulatory system; Z83.3 Family history of diabetes mellitus; Z82.3 Family history of stroke; Z83.6 Family history of other diseases of the respiratory system; Z95.810 Presence of automatic (implantable) cardiac defibrillator

== ENCOUNTER 2019-01-08 15:56 | Emergency (ER) | payer MEDICARE ==
[~2019-01-08] VITALS: Ht 154.9 cm; Wt 60.3 kg
--- NOTE | ~2019-01-08 | EKG ---
[place], [place] ELECTROCARDIOGRAM REPORT NAME: PRASANTH REAL UNIT #: [id number] ROOM: DOCTOR: EPIPHANY DRAFT REPORT BIRTHDATE: [birth year] [facility] Test Date: 2019-01-08 Test Time: 16:00:01 Pat Name: PRASANTH REAL Department: Room: Gender: F Sap Technical Developer: : 1935 Requested By: PONCE DAVILA Order Number: [id number] Reading MD: Raya Benoit Measurements Intervals [place] Rate: 79 P: 73 NE: 152 QRS: 0 QRSD: 154 T: QT: 438 QTc: 503 Interpretive Statements Ventricular-paced rhythm ? underlying A fib Compared to ECG 12/26/2018 04:22:18 Atrial-sensed ventricular-paced complex(es) or rhythm no longer present Electronically Signed On 01-09-2019 12:45:27 PDT by Raya Benoit CM:EKGRPT:ELECTROCARDIOGRAM REPORT [id number] PONCE REAVES DRAFT REPORT PONCE DAVILA MD
[~2019-01-08 15:56] MED LIST changes: +CALCIUM CITRAT1 EAC9 PO; +COMPLETE TABLE1 EACH PO; +COREG12.5 M1 PO; +FUROSEMIDE40 MG PO; +MAGNESIUM250 M1 PO; +NIACIN500 M5 PO; +POTASSIUM CHLO20 ME4 PO; +VITAMIN D50000 UNIT PO
[2019-01-08 16:00] VITALS: BP 152/55
[2019-01-08 16:37] LABS: BASO % 0.6 % (0.0-1.0); EOS # 0.3 10*3/uL (0.0-0.4); EOS % 3.6 % (1.0-4.0); HEMATOCRIT 28.6 % (37.0-47.0); HEMOGLOBIN 8.9 g/dl (12.0-16.0); LYMPH # 0.7 10*3/uL (1.3-4.4); LYMPH % 9.8 % (27.0-41.0); MEAN CORPUSCULAR HGB 30.8 pg (27.0-31.0); MEAN CORPUSCULAR HGB CONC 31.1 g/dl (33.0-37.0); MONO # 0.7 10*3/uL (0.1-1.0); MONO % 9.8 % (3.0-9.0); NEUT # 5.4 10*3/uL (2.3-7.9); NEUT % 74.9 % (47.0-73.0); PLATELET COUNT AUTOMATED 312 10*3/uL (130-400); RED BLOOD COUNT 2.89 10*6/uL (4.10-5.10); RED CELL DISTRI WIDTH 14.1 % (0-14.5); WHITE BLOOD COUNT 7.2 10*3/uL (4.8-10.8)
[2019-01-08 16:41] LABS: BILIRUBIN NEGATIVE (NEGATIVE); BLOOD NEGATIVE (NEGATIVE); CLARITY CLEAR (CLEAR); COLOR YELLOW (YELLOW); GLUCOSE NEGATIVE (NEGATIVE); KETONE NEGATIVE (NEGATIVE); LEUKO ESTERASE TRACE (NEGATIVE); NITRITE NEGATIVE (NEGATIVE); SPECIFIC GRAVITY <= 1.005 (1.005-1.030); UROBILINOGEN 0.2 E.U./dl (0.2-1.0)
[2019-01-08 16:47] LABS: BACTERIA TRACE; EPITHELIAL CELLS 0-2; WBC 0-2 wbc/hpf (0-5)
[2019-01-08 16:55] LABS: ALBUMIN 3.2 gm/dl (3.1-4.5); CREATININE 1.54 mg/dL (0.55-1.02); POTASSIUM 3.9 mmol/L (3.5-5.1); TOTAL PROTEIN 7.2 gm/dL (6.4-8.2)
[2019-01-08 16:58] LABS: ACT PARTIAL THROMBO TIME 23.8 SECONDS (20.0-32.1)
[2019-01-08 16:59] LABS: TROPONIN I 0.116 ng/ml (<0.045)
== END 2019-01-08 17:53 | disposition home or self-care (01) ==
LOC: ED 15:56
PROVIDERS: Emergency Medicine
DX: R25.2 Cramp and spasm (principal); D64.9 Anemia, unspecified; I13.0 Hypertensive heart and chronic kidney disease with heart failure and stage 1 through stage 4 chronic kidney disease, or unspecified chronic kidney disease; E11.22 Type 2 diabetes mellitus with diabetic chronic kidney disease; N18.3 Chronic kidney disease, stage 3 (moderate); I50.20 Unspecified systolic (congestive) heart failure; I25.2 Old myocardial infarction; R79.1 Abnormal coagulation profile; R74.0 Nonspecific elevation of levels of transaminase and lactic acid dehydrogenase [LDH]; E78.00 Pure hypercholesterolemia, unspecified; E03.9 Hypothyroidism, unspecified; M81.0 Age-related osteoporosis without current pathological fracture; Z79.899 Other long term (current) drug therapy; Z79.82 Long term (current) use of aspirin; Z87.891 Personal history of nicotine dependence

== ENCOUNTER → 2019-02-16 | Outpatient (CLI) | payer MEDICARE ==
[2019-02-16 09:40] LABS: BILIRUBIN NEGATIVE (NEGATIVE); BLOOD TRACE-INTACT (NEGATIVE); CLARITY SL CLOUDY (CLEAR); COLOR YELLOW (YELLOW); GLUCOSE NEGATIVE (NEGATIVE); KETONE NEGATIVE (NEGATIVE); LEUKO ESTERASE 1+ (NEGATIVE); NITRITE POSITIVE (NEGATIVE); UROBILINOGEN 0.2 E.U./dl (0.2-1.0)
[2019-02-16 09:49] LABS: BACTERIA 3+; WBC 31-40 wbc/hpf (0-5)
[2019-02-16 09:56] LABS: CREATININE 1.65 mg/dL (0.55-1.02)
[2019-02-16 10:02] LABS: THYROID STIM HORMONE (HS) 0.188 uIU/ml (0.358-4.75)
== END | disposition home or self-care (01) ==
LOC: LAB 08:45
PROVIDERS: Internal Medicine Endocrinology, Diabetes & Metabolism; Urology
DX: C67.9 Malignant neoplasm of bladder, unspecified (principal); E11.9 Type 2 diabetes mellitus without complications; E03.9 Hypothyroidism, unspecified; E53.9 Vitamin B deficiency, unspecified; I73.9 Peripheral vascular disease, unspecified; E78.49 Other hyperlipidemia; E55.9 Vitamin D deficiency, unspecified; R29.890 Loss of height

== ENCOUNTER → 2019-05-18 | Outpatient (CLI) | payer MEDICARE ==
[2019-05-18 09:57] LABS: BILIRUBIN NEGATIVE (NEGATIVE); BLOOD NEGATIVE (NEGATIVE); CLARITY TURBID (CLEAR); COLOR YELLOW (YELLOW); GLUCOSE NEGATIVE (NEGATIVE); KETONE NEGATIVE (NEGATIVE); LEUKO ESTERASE NEGATIVE (NEGATIVE); NITRITE NEGATIVE (NEGATIVE); UROBILINOGEN 0.2 E.U./dl (0.2-1.0)
[2019-05-18 10:17] LABS: CHOLESTEROL 156 mg/dL (<200); HDL CHOLESTEROL 54 mg/dl (40-60); LDL CHOLESTEROL 77 mg/dL (9-159); TRIGLYCERIDES 127 mg/dl (<150); VLDL CHOLESTEROL 25 mg/dL (6-40)
[2019-05-18 10:19] LABS: BACTERIA TRACE
[2019-05-18 10:25] LABS: CREATININE 1.72 mg/dL (0.55-1.02); PHOSPHOROUS 3.8 mg/dL (2.5-4.9); THYROID STIM HORMONE (HS) 0.999 uIU/ml (0.358-4.75)
[2019-05-18 10:26] LABS: VITAMIN D, 25-HYDROXY 66.1 ng/mL (30-100)
== END | disposition home or self-care (01) ==
LOC: LAB 08:24
PROVIDERS: Internal Medicine Cardiovascular Disease; Internal Medicine Endocrinology, Diabetes & Metabolism; Urology
DX: E78.5 Hyperlipidemia, unspecified (principal); E11.9 Type 2 diabetes mellitus without complications; I10 Essential (primary) hypertension; E03.9 Hypothyroidism, unspecified; E53.9 Vitamin B deficiency, unspecified; E55.9 Vitamin D deficiency, unspecified; R29.890 Loss of height; I73.9 Peripheral vascular disease, unspecified; C67.9 Malignant neoplasm of bladder, unspecified; E78.49 Other hyperlipidemia; Z79.899 Other long term (current) drug therapy

== ENCOUNTER → 2019-08-29 | Outpatient (CLI) | payer MEDICARE ==
[2019-08-29 09:32] LABS: CREATININE 1.63 mg/dL (0.55-1.02)
[2019-08-29 09:37] LABS: THYROID STIM HORMONE (HS) 1.15 uIU/ml (0.358-4.75)
== END | disposition home or self-care (01) ==
LOC: LAB 08:29 → EDBD 08:29
PROVIDERS: Internal Medicine Endocrinology, Diabetes & Metabolism
DX: E11.9 Type 2 diabetes mellitus without complications (principal); I10 Essential (primary) hypertension; E78.5 Hyperlipidemia, unspecified; E03.9 Hypothyroidism, unspecified; E53.9 Vitamin B deficiency, unspecified; R29.890 Loss of height; I73.9 Peripheral vascular disease, unspecified

== ENCOUNTER → 2019-10-26 | Outpatient (CLI) | payer MEDICARE | END | disposition home or self-care (01) | LOC: LAB 12:01 | PROVIDERS: Urology | DX: C67.9 Malignant neoplasm of bladder, unspecified (principal); I10 Essential (primary) hypertension; Z79.899 Other long term (current) drug therapy ==

== ENCOUNTER → 2019-12-01 | Outpatient (CLI) | payer MEDICARE ==
[2019-12-01 08:39] LABS: HEMATOCRIT 40.6 % (37.0-47.0)
[2019-12-01 09:14] LABS: POTASSIUM 4.3 mmol/L (3.5-5.1)
[2019-12-01 09:15] LABS: CREATININE 2.03 mg/dL (0.55-1.02)
[2019-12-01 09:22] LABS: THYROID STIM HORMONE (HS) 2.05 uIU/ml (0.358-4.75)
[2019-12-01 09:49] LABS: VITAMIN D, 25-HYDROXY 61.9 ng/mL (30-100)
[2019-12-01 10:04] LABS: BACTERIA 1+; BILIRUBIN 1+ (NEGATIVE); BLOOD NEGATIVE (NEGATIVE); CLARITY CLEAR (CLEAR); COLOR YELLOW (YELLOW); GLUCOSE NEGATIVE (NEGATIVE); KETONE NEGATIVE (NEGATIVE); LEUKO ESTERASE 1+ (NEGATIVE); NITRITE NEGATIVE (NEGATIVE); UROBILINOGEN 0.2 E.U./dl (0.2-1.0)
[2019-12-02 12:02] LABS: CREATININE,URINE 95.2 mg/dL (Not Estab.)
== END | disposition home or self-care (01) ==
LOC: LAB 07:59 → EDBD 07:59
PROVIDERS: Internal Medicine; Internal Medicine Endocrinology, Diabetes & Metabolism
DX: I12.9 Hypertensive chronic kidney disease with stage 1 through stage 4 chronic kidney disease, or unspecified chronic kidney disease (principal); E11.22 Type 2 diabetes mellitus with diabetic chronic kidney disease; N18.3 Chronic kidney disease, stage 3 (moderate); E55.9 Vitamin D deficiency, unspecified; E03.9 Hypothyroidism, unspecified; E78.5 Hyperlipidemia, unspecified; E53.9 Vitamin B deficiency, unspecified; I73.9 Peripheral vascular disease, unspecified; D64.9 Anemia, unspecified; R29.890 Loss of height

== ENCOUNTER → 2019-12-17 | Outpatient (CLI) | payer MEDICARE | END | disposition home or self-care (01) | LOC: LAB 12-16 08:00 → EDBD 00:43 → LAB 08:14 | DX: N18.4 Chronic kidney disease, stage 4 (severe) (principal) ==

== ENCOUNTER → 2020-01-02 | Outpatient (CLI) | payer MEDICARE ==
[2020-01-02 08:37] LABS: HEMATOCRIT 43.2 % (37.0-47.0)
[2020-01-02 09:03] LABS: ALBUMIN 3.9 gm/dl (3.1-4.5); CREATININE 1.54 mg/dL (0.55-1.02)
[2020-01-02 09:18] LABS: BILIRUBIN NEGATIVE (NEGATIVE); BLOOD TRACE-INTACT (NEGATIVE); CLARITY CLEAR (CLEAR); COLOR YELLOW (YELLOW); GLUCOSE NEGATIVE (NEGATIVE); KETONE NEGATIVE (NEGATIVE); LEUKO ESTERASE NEGATIVE (NEGATIVE); NITRITE NEGATIVE (NEGATIVE); PH 6.5 (5.0-9.0); UROBILINOGEN 0.2 E.U./dl (0.2-1.0)
[2020-01-02 09:26] LABS: BACTERIA 1+; MUCOUS TRACE
[2020-01-02 09:37] LABS: PTH INTACT 23.5 pg/mL (18.5-88.0); VITAMIN D, 25-HYDROXY 57.3 ng/mL (30-100)
[2020-01-05 14:11] LABS: CREATININE,URINE 97.3 mg/dL (Not Estab.)
== END | disposition home or self-care (01) ==
LOC: LAB 08:03
PROVIDERS: Internal Medicine
DX: N18.3 Chronic kidney disease, stage 3 (moderate) (principal); N17.9 Acute kidney failure, unspecified; Z79.899 Other long term (current) drug therapy

== ENCOUNTER → 2020-01-28 | Outpatient (CLI) | payer MEDICARE | END | disposition home or self-care (01) | LOC: COVID19 10:55 | DX: J43.9 Emphysema, unspecified (principal); Z20.828 Contact with and (suspected) exposure to other viral communicable diseases ==

== ENCOUNTER → 2020-03-28 | Outpatient (CLI) | payer MEDICARE ==
[2020-03-28 10:13] LABS: CREATININE 1.52 mg/dL (0.55-1.02)
[2020-03-28 10:27] LABS: THYROID STIM HORMONE (HS) 2.04 uIU/ml (0.358-4.75)
== END | disposition home or self-care (01) ==
LOC: LAB 09:22
PROVIDERS: ATTEND Internal Medicine Endocrinology, Diabetes & Metabolism
DX: I10 Essential (primary) hypertension (principal); E11.9 Type 2 diabetes mellitus without complications; E78.5 Hyperlipidemia, unspecified; E03.9 Hypothyroidism, unspecified; E53.9 Vitamin B deficiency, unspecified; E55.9 Vitamin D deficiency, unspecified; R29.890 Loss of height; I73.9 Peripheral vascular disease, unspecified

== ENCOUNTER → 2020-05-16 | Outpatient (CLI) | payer MEDICARE | END | disposition home or self-care (01) | LOC: LAB 09:08 | PROVIDERS: ATTEND Urology | DX: C67.9 Malignant neoplasm of bladder, unspecified (principal); Z79.899 Other long term (current) drug therapy ==

== ENCOUNTER → 2020-07-09 | Outpatient (CLI) | payer MEDICARE ==
[2020-07-09 10:01] LABS: CREATININE 1.7 mg/dL (0.55-1.02)
[2020-07-09 10:06] LABS: THYROID STIM HORMONE (HS) 2.06 uIU/ml (0.358-4.75)
[2020-07-09 11:41] LABS: VITAMIN D, 25-HYDROXY 48.2 ng/mL (30-100)
== END | disposition home or self-care (01) ==
LOC: LAB 08:59
PROVIDERS: Internal Medicine Endocrinology, Diabetes & Metabolism; ATTEND Urology
DX: C67.9 Malignant neoplasm of bladder, unspecified (principal); I10 Essential (primary) hypertension; E11.9 Type 2 diabetes mellitus without complications; R29.890 Loss of height; I73.9 Peripheral vascular disease, unspecified; E55.9 Vitamin D deficiency, unspecified; E78.5 Hyperlipidemia, unspecified; E03.9 Hypothyroidism, unspecified; E53.9 Vitamin B deficiency, unspecified

== ENCOUNTER → 2020-08-25 | Outpatient (CLI) | payer MEDICARE ==
[2020-08-25 08:44] LABS: HEMATOCRIT 42.6 % (37.0-47.0)
[2020-08-25 08:54] LABS: BILIRUBIN Negative (Negative); BLOOD Negative (Negative); CLARITY Clear (Clear); COLOR Yellow (Yellow); GLUCOSE Negative (Negative); KETONE Negative (Negative); LEUKO ESTERASE 2+ (Negative); NITRITE Negative (Negative); PH 6.5 (4.5-8.0); UROBILINOGEN 0.2 E.U./dl (0.0-1.0)
[2020-08-25 09:11] LABS: CREATININE 1.82 mg/dL (0.55-1.02); POTASSIUM 4.5 mmol/L (3.5-5.1)
[2020-08-25 10:15] LABS: PTH INTACT 32.4 pg/mL (18.5-88.0); VITAMIN D, 25-HYDROXY 43.9 ng/mL (30-100)
[2020-08-26 10:08] LABS: CREATININE,URINE 99.1 mg/dL (Not Estab.)
== END | disposition home or self-care (01) ==
LOC: LAB 08:07
PROVIDERS: ATTEND Internal Medicine
DX: I12.9 Hypertensive chronic kidney disease with stage 1 through stage 4 chronic kidney disease, or unspecified chronic kidney disease (principal); E55.9 Vitamin D deficiency, unspecified; N18.9 Chronic kidney disease, unspecified; N28.1 Cyst of kidney, acquired

== ENCOUNTER → 2020-10-17 | Outpatient (CLI) | payer MEDICARE ==
[2020-10-17 09:10] LABS: BILIRUBIN Negative (Negative); BLOOD Negative (Negative); CLARITY Clear (Clear); COLOR Yellow (Yellow); GLUCOSE Negative (Negative); KETONE Negative (Negative); LEUKO ESTERASE 2+ (Negative); NITRITE Negative (Negative); PH 6.5 (4.5-8.0); SPECIFIC GRAVITY 1.015 (1.001-1.030)
[2020-10-17 09:10] LABS: HEMATOCRIT 40.9 % (37.0-47.0)
[2020-10-17 09:18] LABS: WBC 21-30 wbc/hpf (0-5)
[2020-10-17 09:19] LABS: BACTERIA TRACE; RBC 0-2 rbc/hpf (0-2)
[2020-10-17 09:27] LABS: POTASSIUM 4.3 mmol/L (3.5-5.1)
[2020-10-17 09:31] LABS: CREATININE 1.75 mg/dL (0.55-1.02)
[2020-10-17 09:44] LABS: THYROID STIM HORMONE (HS) 7.14 uIU/ml (0.358-4.75)
[2020-10-17 10:14] LABS: PTH INTACT 35.9 pg/mL (18.5-88.0); VITAMIN D, 25-HYDROXY 43.7 ng/mL (30-100)
[2020-10-18 10:07] LABS: CREATININE,URINE 102.2 mg/dL (Not Estab.)
== END | disposition home or self-care (01) ==
LOC: LAB 08:26
PROVIDERS: Internal Medicine; Internal Medicine Endocrinology, Diabetes & Metabolism; ATTEND Family Medicine
DX: I12.9 Hypertensive chronic kidney disease with stage 1 through stage 4 chronic kidney disease, or unspecified chronic kidney disease (principal); N18.4 Chronic kidney disease, stage 4 (severe); C67.9 Malignant neoplasm of bladder, unspecified; E11.9 Type 2 diabetes mellitus without complications; E55.9 Vitamin D deficiency, unspecified; E78.5 Hyperlipidemia, unspecified; R29.890 Loss of height; E03.9 Hypothyroidism, unspecified; I73.9 Peripheral vascular disease, unspecified; E56.8 Deficiency of other vitamins

== ENCOUNTER → 2020-11-22 | Outpatient (CLI) | payer MEDICARE ==
[2020-11-22 14:07] LABS: BILIRUBIN Negative (Negative); BLOOD Negative (Negative); CLARITY Clear (Clear); COLOR Yellow (Yellow); GLUCOSE Negative (Negative); KETONE Negative (Negative); LEUKO ESTERASE Negative (Negative); NITRITE Negative (Negative); UROBILINOGEN 0.2 E.U./dl (0.0-1.0)
[2020-11-22 16:22] LABS: BACTERIA TRACE; HYALINE CAST 0-2; RBC 0-2 rbc/hpf (0-2)
== END | disposition home or self-care (01) ==
LOC: LAB 13:31
PROVIDERS: ATTEND Urology
DX: C67.9 Malignant neoplasm of bladder, unspecified (principal)

== ENCOUNTER → 2020-11-28 | Outpatient (CLI) | payer MEDICARE | END | disposition home or self-care (01) | LOC: LAB 11:19 → EDBD 11:19 | PROVIDERS: ATTEND Urology | DX: N18.6 End stage renal disease (principal); C67.9 Malignant neoplasm of bladder, unspecified; Z79.899 Other long term (current) drug therapy ==

== ENCOUNTER → 2021-01-28 | Outpatient (CLI) | payer MEDICARE ==
[2021-01-28 08:32] LABS: CREATININE 1.41 mg/dL (0.55-1.02)
[2021-01-28 08:55] LABS: THYROID STIM HORMONE (HS) 2.84 uIU/ml (0.358-4.75)
== END | disposition home or self-care (01) ==
LOC: LAB 07:36
PROVIDERS: ATTEND Internal Medicine Endocrinology, Diabetes & Metabolism
DX: E11.9 Type 2 diabetes mellitus without complications (principal); I10 Essential (primary) hypertension; E78.5 Hyperlipidemia, unspecified; E03.9 Hypothyroidism, unspecified; E55.9 Vitamin D deficiency, unspecified; R29.890 Loss of height; I73.9 Peripheral vascular disease, unspecified; E53.8 Deficiency of other specified B group vitamins

== ENCOUNTER → 2021-03-01 | Outpatient (CLI) | payer MEDICARE | LOC: WOUNDCARE 02:57 | PROVIDERS: ATTEND Nurse Practitioner | DX: E11.622 Type 2 diabetes mellitus with other skin ulcer (principal); L97.522 Non-pressure chronic ulcer of other part of left foot with fat layer exposed; S80.812A Abrasion, left lower leg, initial encounter; E78.5 Hyperlipidemia, unspecified; E03.9 Hypothyroidism, unspecified; I50.9 Heart failure, unspecified; Z95.5 Presence of coronary angioplasty implant and graft; Z87.891 Personal history of nicotine dependence; Z98.890 Other specified postprocedural states; Z79.82 Long term (current) use of aspirin; Z85.51 Personal history of malignant neoplasm of bladder; X58.XXXA Exposure to other specified factors, initial encounter; Y93.89 Activity, other specified; Y92.89 Other specified places as the place of occurrence of the external cause; Y99.8 Other external cause status ==

== ENCOUNTER → 2021-03-09 | Outpatient (CLI) | payer MEDICARE | LOC: WOUNDCARE 00:50 | PROVIDERS: ATTEND Nurse Practitioner | DX: E11.622 Type 2 diabetes mellitus with other skin ulcer (principal); L97.522 Non-pressure chronic ulcer of other part of left foot with fat layer exposed; S80.812D Abrasion, left lower leg, subsequent encounter; E78.5 Hyperlipidemia, unspecified; E03.9 Hypothyroidism, unspecified; I50.9 Heart failure, unspecified; Z95.5 Presence of coronary angioplasty implant and graft; Z87.891 Personal history of nicotine dependence; Z98.890 Other specified postprocedural states; Z79.82 Long term (current) use of aspirin; Z85.51 Personal history of malignant neoplasm of bladder; X58.XXXD Exposure to other specified factors, subsequent encounter ==

== ENCOUNTER → 2021-03-16 | Outpatient (CLI) | payer MEDICARE | LOC: WOUNDCARE 00:15 | PROVIDERS: ATTEND Nurse Practitioner | DX: E11.622 Type 2 diabetes mellitus with other skin ulcer (principal); L97.522 Non-pressure chronic ulcer of other part of left foot with fat layer exposed; S80.812D Abrasion, left lower leg, subsequent encounter; E78.5 Hyperlipidemia, unspecified; E03.9 Hypothyroidism, unspecified; I50.9 Heart failure, unspecified; Z95.5 Presence of coronary angioplasty implant and graft; Z87.891 Personal history of nicotine dependence; Z98.890 Other specified postprocedural states; Z79.82 Long term (current) use of aspirin; Z85.51 Personal history of malignant neoplasm of bladder; X58.XXXD Exposure to other specified factors, subsequent encounter ==

== ENCOUNTER → 2021-03-23 | Outpatient (CLI) | payer MEDICARE | LOC: WOUNDCARE 02:07 | PROVIDERS: ATTEND Nurse Practitioner | DX: E11.622 Type 2 diabetes mellitus with other skin ulcer (principal); L97.822 Non-pressure chronic ulcer of other part of left lower leg with fat layer exposed; E11.621 Type 2 diabetes mellitus with foot ulcer; L97.522 Non-pressure chronic ulcer of other part of left foot with fat layer exposed; S80.812D Abrasion, left lower leg, subsequent encounter; E78.5 Hyperlipidemia, unspecified; E03.9 Hypothyroidism, unspecified; I50.9 Heart failure, unspecified; Z95.5 Presence of coronary angioplasty implant and graft; Z87.891 Personal history of nicotine dependence; Z98.890 Other specified postprocedural states; Z79.82 Long term (current) use of aspirin; Z85.51 Personal history of malignant neoplasm of bladder; X58.XXXD Exposure to other specified factors, subsequent encounter ==

== ENCOUNTER → 2021-04-05 | Outpatient (CLI) | payer MEDICARE | LOC: WOUNDCARE 01:13 | PROVIDERS: ATTEND Nurse Practitioner Family | DX: E11.622 Type 2 diabetes mellitus with other skin ulcer (principal); L97.822 Non-pressure chronic ulcer of other part of left lower leg with fat layer exposed; S80.812D Abrasion, left lower leg, subsequent encounter; E11.621 Type 2 diabetes mellitus with foot ulcer; L97.522 Non-pressure chronic ulcer of other part of left foot with fat layer exposed; E78.5 Hyperlipidemia, unspecified; E03.9 Hypothyroidism, unspecified; I50.9 Heart failure, unspecified; Z95.5 Presence of coronary angioplasty implant and graft; Z87.891 Personal history of nicotine dependence; Z79.82 Long term (current) use of aspirin; Z79.890 Hormone replacement therapy; Z85.51 Personal history of malignant neoplasm of bladder; X58.XXXD Exposure to other specified factors, subsequent encounter ==

== ENCOUNTER → 2021-04-13 | Outpatient (CLI) | payer MEDICARE | LOC: WOUNDCARE 00:30 | PROVIDERS: ATTEND Nurse Practitioner Family | DX: E11.622 Type 2 diabetes mellitus with other skin ulcer (principal); L97.828 Non-pressure chronic ulcer of other part of left lower leg with other specified severity; S80.812D Abrasion, left lower leg, subsequent encounter; E11.621 Type 2 diabetes mellitus with foot ulcer; L97.522 Non-pressure chronic ulcer of other part of left foot with fat layer exposed; E78.5 Hyperlipidemia, unspecified; E03.9 Hypothyroidism, unspecified; I50.9 Heart failure, unspecified; Z95.5 Presence of coronary angioplasty implant and graft; Z87.891 Personal history of nicotine dependence; Z79.82 Long term (current) use of aspirin; Z79.890 Hormone replacement therapy; X58.XXXD Exposure to other specified factors, subsequent encounter ==

== ENCOUNTER → 2021-04-29 | Outpatient (CLI) | payer MEDICARE ==
[2021-04-29 09:17] LABS: BILIRUBIN Negative (Negative); BLOOD Negative (Negative); CLARITY Clear (Clear); COLOR Yellow (Yellow); GLUCOSE Negative (Negative); KETONE Negative (Negative); LEUKO ESTERASE 2+ (Negative); NITRITE Negative (Negative); UROBILINOGEN 0.2 E.U./dl (0.0-1.0)
[2021-04-29 09:30] LABS: CREATININE 1.87 mg/dL (0.55-1.02); POTASSIUM 4.5 mmol/L (3.5-5.1)
[2021-04-29 09:31] LABS: BACTERIA 2+; MUCOUS 1+; WBC 16-20 wbc/hpf (0-5)
[2021-04-29 09:39] LABS: THYROID STIM HORMONE (HS) 2.56 uIU/ml (0.358-4.75)
[2021-04-29 09:55] LABS: VITAMIN D, 25-HYDROXY 51.9 ng/mL (30-100)
[2021-04-29 09:56] LABS: PTH INTACT 33.6 pg/mL (18.5-88.0)
[2021-05-02 09:07] LABS: CREATININE,URINE 128.1 mg/dL (Not Estab.)
== END | disposition home or self-care (01) ==
LOC: LAB 08:31
PROVIDERS: Internal Medicine; Internal Medicine Endocrinology, Diabetes & Metabolism; ATTEND Internal Medicine Cardiovascular Disease
DX: C67.9 Malignant neoplasm of bladder, unspecified (principal); I12.9 Hypertensive chronic kidney disease with stage 1 through stage 4 chronic kidney disease, or unspecified chronic kidney disease; E11.22 Type 2 diabetes mellitus with diabetic chronic kidney disease; N18.4 Chronic kidney disease, stage 4 (severe); E78.5 Hyperlipidemia, unspecified; E03.9 Hypothyroidism, unspecified; E55.9 Vitamin D deficiency, unspecified; R29.890 Loss of height; I73.9 Peripheral vascular disease, unspecified; E53.8 Deficiency of other specified B group vitamins

== ENCOUNTER → 2021-07-04 | Outpatient (CLI) | payer MEDICARE | END | disposition home or self-care (01) | LOC: LAB 09:35 | PROVIDERS: ATTEND Urology | DX: C67.9 Malignant neoplasm of bladder, unspecified (principal); N39.3 Stress incontinence (female) (male) ==

== ENCOUNTER → 2021-08-19 | Outpatient (CLI) | payer MEDICARE ==
[2021-08-19 08:46] LABS: CREATININE 1.66 mg/dL (0.55-1.02)
[2021-08-19 08:55] LABS: THYROID STIM HORMONE (HS) 2.04 uIU/ml (0.358-4.75)
== END | disposition home or self-care (01) ==
LOC: EDBD 07:58 → LAB 07:58
PROVIDERS: ATTEND Internal Medicine Endocrinology, Diabetes & Metabolism
DX: I10 Essential (primary) hypertension (principal); E11.9 Type 2 diabetes mellitus without complications; E78.5 Hyperlipidemia, unspecified; E03.9 Hypothyroidism, unspecified; E55.9 Vitamin D deficiency, unspecified; R29.890 Loss of height; E53.8 Deficiency of other specified B group vitamins

== ENCOUNTER → 2021-08-25 | Outpatient (CLI) | payer MEDICARE ==
[2021-08-25 13:03] LABS: BILIRUBIN Negative (Negative); BLOOD Trace-Intact (Negative); CLARITY Cloudy (Clear); COLOR Yellow (Yellow); GLUCOSE Negative (Negative); KETONE Negative (Negative); LEUKO ESTERASE 3+ (Negative); NITRITE Negative (Negative); PH 7.5 (4.5-8.0); SPECIFIC GRAVITY 1.015 (1.001-1.030); UROBILINOGEN 0.2 E.U./dl (0.0-1.0)
[2021-08-25 13:12] LABS: WBC TNTC wbc/hpf (0-5)
== END | disposition home or self-care (01) ==
LOC: LAB 12:33
PROVIDERS: ATTEND Nurse Practitioner Family
DX: R39.15 Urgency of urination (principal)

== ENCOUNTER 2021-09-27 14:00 | Emergency (ER) | payer OTHER, MEDICARE ==
[~2021-09-27] VITALS: Wt 63.5 kg
[2021-09-27 17:50] VITALS: BP 102/49
== END 2021-09-27 17:50 | disposition home or self-care (01) ==
LOC: ED 14:00
DX: S16.1XXA Strain of muscle, fascia and tendon at neck level, initial encounter (principal); S09.90XA Unspecified injury of head, initial encounter; Z79.899 Other long term (current) drug therapy; Z79.82 Long term (current) use of aspirin; Z90.49 Acquired absence of other specified parts of digestive tract; Z98.890 Other specified postprocedural states; Z90.710 Acquired absence of both cervix and uterus; Z87.891 Personal history of nicotine dependence; V89.2XXA Person injured in unspecified motor-vehicle accident, traffic, initial encounter; Y93.89 Activity, other specified; Y92.89 Other specified places as the place of occurrence of the external cause; Y99.8 Other external cause status

== ENCOUNTER → 2021-11-25 | Outpatient (CLI) | payer MEDICARE ==
[2021-11-25 08:48] LABS: CREATININE 1.41 mg/dL (0.55-1.02)
[2021-11-25 08:54] LABS: THYROID STIM HORMONE (HS) 1.49 uIU/ml (0.358-4.75)
[2021-11-25 09:45] LABS: VITAMIN D, 25-HYDROXY 57.9 ng/mL (30-100)
== END ==
LOC: LAB 08:11
PROVIDERS: ATTEND Internal Medicine Endocrinology, Diabetes & Metabolism
DX: E11.9 Type 2 diabetes mellitus without complications (principal); I10 Essential (primary) hypertension; E78.5 Hyperlipidemia, unspecified; E03.9 Hypothyroidism, unspecified; E55.9 Vitamin D deficiency, unspecified; R29.890 Loss of height; E53.8 Deficiency of other specified B group vitamins

== ENCOUNTER → 2022-03-03 | Outpatient (CLI) | payer MEDICARE ==
[2022-03-03 08:58] LABS: CREATININE 1.73 mg/dL (0.55-1.02)
[2022-03-03 09:04] LABS: THYROID STIM HORMONE (HS) 2.37 uIU/ml (0.358-4.75)
== END | disposition home or self-care (01) ==
LOC: LAB 07:55
PROVIDERS: ATTEND Internal Medicine Endocrinology, Diabetes & Metabolism
DX: I10 Essential (primary) hypertension (principal); E11.9 Type 2 diabetes mellitus without complications; E78.5 Hyperlipidemia, unspecified; E03.9 Hypothyroidism, unspecified; E55.9 Vitamin D deficiency, unspecified; E53.8 Deficiency of other specified B group vitamins

== ENCOUNTER → 2022-03-12 | Outpatient (CLI) | payer MEDICARE ==
[2022-03-12 12:31] LABS: BILIRUBIN Negative (Negative); BLOOD 2+ (Negative); CLARITY Clear (Clear); COLOR Yellow (Yellow); GLUCOSE Negative (Negative); KETONE Negative (Negative); LEUKO ESTERASE 2+ (Negative); NITRITE Negative (Negative); SPECIFIC GRAVITY 1.015 (1.001-1.030); UROBILINOGEN 0.2 E.U./dl (0.0-1.0)
[2022-03-12 12:45] LABS: RBC 21-30 rbc/hpf (0-2); WBC 31-40 wbc/hpf (0-5)
[2022-03-12 12:46] LABS: BACTERIA 1+
== END | disposition home or self-care (01) ==
LOC: EDBD 11:42 → LAB 11:42
PROVIDERS: ATTEND Nurse Practitioner Family
DX: R39.15 Urgency of urination (principal)

== ENCOUNTER → 2022-03-26 | Outpatient (CLI) | payer MEDICARE | LOC: LAB 11:43 | PROVIDERS: ATTEND Urology | DX: C67.9 Malignant neoplasm of bladder, unspecified (principal) ==

== ENCOUNTER → 2022-06-07 | Outpatient (CLI) | payer MEDICARE ==
[2022-06-07 08:57] LABS: CREATININE 1.59 mg/dL (0.55-1.02); THYROID STIM HORMONE (HS) 6.459 uIU/ml (0.550-4.780)
[2022-06-07 10:54] LABS: VITAMIN D, 25-HYDROXY 36.7 ng/mL (30-100)
== END | disposition home or self-care (01) ==
LOC: LAB 07:57
PROVIDERS: ATTEND Internal Medicine Endocrinology, Diabetes & Metabolism
DX: E11.9 Type 2 diabetes mellitus without complications (principal); E78.5 Hyperlipidemia, unspecified; I10 Essential (primary) hypertension; E03.9 Hypothyroidism, unspecified; E55.9 Vitamin D deficiency, unspecified; E53.8 Deficiency of other specified B group vitamins

== ENCOUNTER → 2022-07-02 | Outpatient (CLI) | payer MEDICARE | END | disposition home or self-care (01) | LOC: LAB 01:26 | PROVIDERS: ATTEND Urology | DX: C67.9 Malignant neoplasm of bladder, unspecified (principal); Z79.899 Other long term (current) drug therapy ==

== ENCOUNTER → 2022-09-08 | Outpatient (CLI) | payer MEDICARE ==
[2022-09-08 09:07] LABS: THYROID STIM HORMONE (HS) 2.943 uIU/ml (0.550-4.780)
== END | disposition home or self-care (01) ==
LOC: LAB 08:13
PROVIDERS: ATTEND Internal Medicine Endocrinology, Diabetes & Metabolism
DX: I10 Essential (primary) hypertension (principal); E11.9 Type 2 diabetes mellitus without complications; E78.5 Hyperlipidemia, unspecified; E03.9 Hypothyroidism, unspecified; E55.9 Vitamin D deficiency, unspecified; E53.8 Deficiency of other specified B group vitamins

== ENCOUNTER → 2022-10-01 | Outpatient (CLI) | payer MEDICARE ==
[2022-10-01 13:04] LABS: BILIRUBIN Negative (Negative); BLOOD Trace-Intact (Negative); CLARITY Clear (Clear); COLOR Yellow (Yellow); GLUCOSE Trace (Negative); KETONE Negative (Negative); LEUKO ESTERASE Negative (Negative); NITRITE Negative (Negative); PH 6.5 (4.5-8.0); SPECIFIC GRAVITY <= 1.005 (1.001-1.030); UROBILINOGEN 0.2 E.U./dl (0.0-1.0)
[2022-10-01 14:02] LABS: BACTERIA TRACE; RBC 21-30 rbc/hpf (0-2)
== END | disposition home or self-care (01) ==
LOC: LAB 01:25
PROVIDERS: ATTEND Urology
DX: C67.9 Malignant neoplasm of bladder, unspecified (principal)

== ENCOUNTER → 2022-10-19 | Outpatient (CLI) | payer MEDICARE ==
[2022-10-19 14:21] LABS: POTASSIUM 3.9 mmol/L (3.4-5.1); TOTAL PROTEIN 6.9 gm/dL (6.0-8.0)
== END | disposition home or self-care (01) ==
LOC: LAB 13:30
PROVIDERS: ATTEND Family Medicine
DX: N18.30 Chronic kidney disease, stage 3 unspecified (principal); E87.6 Hypokalemia

== ENCOUNTER → 2022-12-22 | Outpatient (CLI) | payer MEDICARE ==
[2022-12-22 09:20] LABS: THYROID STIM HORMONE (HS) 2.693 uIU/ml (0.550-4.780)
[2022-12-22 09:53] LABS: VITAMIN D, 25-HYDROXY 40.1 ng/mL (30-100)
== END | disposition home or self-care (01) ==
LOC: LAB 08:20
PROVIDERS: ATTEND Internal Medicine Endocrinology, Diabetes & Metabolism
DX: I10 Essential (primary) hypertension (principal); E11.9 Type 2 diabetes mellitus without complications; E78.5 Hyperlipidemia, unspecified; E03.9 Hypothyroidism, unspecified; E55.9 Vitamin D deficiency, unspecified; E53.8 Deficiency of other specified B group vitamins

== ENCOUNTER → 2023-01-14 | Outpatient (CLI) | payer MEDICARE ==
[2023-01-14 09:53] LABS: BILIRUBIN Negative (Negative); BLOOD Negative (Negative); CLARITY Clear (Clear); COLOR Yellow (Yellow); GLUCOSE Negative (Negative); KETONE Negative (Negative); LEUKO ESTERASE Trace (Negative); NITRITE Negative (Negative); PH 7.5 (4.5-8.0); SPECIFIC GRAVITY <= 1.005 (1.001-1.030); UROBILINOGEN 0.2 E.U./dl (0.0-1.0)
== END | disposition home or self-care (01) ==
LOC: LAB 09:16
PROVIDERS: ATTEND Urology
DX: C67.9 Malignant neoplasm of bladder, unspecified (principal); Z79.899 Other long term (current) drug therapy

== ENCOUNTER → 2023-03-30 | Outpatient (CLI) | payer MEDICARE ==
[2023-03-30 08:36] LABS: HEMATOCRIT 42.4 % (37.0-47.0); MEAN CORPUSCULAR HGB 31.4 pg (27.0-31.0); MEAN CORPUSCULAR HGB CONC 32.3 g/dl (33.0-37.0); MEAN PLATELET VOLUME 9.3 fl (9.6-12.3); RED BLOOD COUNT 4.37 10*6/uL (4.10-5.10); RED CELL DISTRI WIDTH 13.5 % (0-14.5); WHITE BLOOD COUNT 8.4 10*3/uL (4.8-10.8)
[2023-03-30 08:59] LABS: POTASSIUM 4.3 mmol/L (3.4-5.1); TOTAL PROTEIN 7.4 gm/dL (6.0-8.0)
== END | disposition home or self-care (01) ==
LOC: LAB 08:02
PROVIDERS: Family Medicine; ATTEND Internal Medicine Endocrinology, Diabetes & Metabolism
DX: I10 Essential (primary) hypertension (principal); E11.9 Type 2 diabetes mellitus without complications; E78.5 Hyperlipidemia, unspecified; E03.9 Hypothyroidism, unspecified; E55.9 Vitamin D deficiency, unspecified; E53.8 Deficiency of other specified B group vitamins; E78.00 Pure hypercholesterolemia, unspecified; M19.09 Primary osteoarthritis, other specified site

== ENCOUNTER → 2023-04-15 | Outpatient (CLI) | payer MEDICARE | END | disposition home or self-care (01) | LOC: LAB 11:26 | PROVIDERS: ATTEND Urology | DX: C67.9 Malignant neoplasm of bladder, unspecified (principal); Z79.899 Other long term (current) drug therapy ==

== ENCOUNTER → 2023-06-29 | Outpatient (CLI) | payer MEDICARE ==
[2023-06-29 09:49] LABS: VITAMIN D, 25-HYDROXY 41.7 ng/mL (30-100)
== END | disposition home or self-care (01) ==
LOC: LAB 07:53
PROVIDERS: ATTEND Internal Medicine Endocrinology, Diabetes & Metabolism
DX: I10 Essential (primary) hypertension (principal); E78.5 Hyperlipidemia, unspecified; E11.9 Type 2 diabetes mellitus without complications; E03.9 Hypothyroidism, unspecified; E55.9 Vitamin D deficiency, unspecified; E53.8 Deficiency of other specified B group vitamins

== ENCOUNTER → 2023-07-29 | Outpatient (CLI) | payer MEDICARE | END | disposition home or self-care (01) | LOC: LAB 01:29 | PROVIDERS: ATTEND Urology | DX: C67.9 Malignant neoplasm of bladder, unspecified (principal); Z79.899 Other long term (current) drug therapy ==

== ENCOUNTER → 2023-09-28 | Outpatient (CLI) | payer MEDICARE | LOC: LAB 09:07 | PROVIDERS: ATTEND Internal Medicine Endocrinology, Diabetes & Metabolism | DX: I10 Essential (primary) hypertension (principal); E11.9 Type 2 diabetes mellitus without complications; E03.9 Hypothyroidism, unspecified; E55.9 Vitamin D deficiency, unspecified; E53.8 Deficiency of other specified B group vitamins ==

== ENCOUNTER → 2023-12-31 | Outpatient (CLI) | payer MEDICARE | END | disposition home or self-care (01) | LOC: LAB 08:36 | PROVIDERS: ATTEND Internal Medicine Endocrinology, Diabetes & Metabolism | DX: E11.9 Type 2 diabetes mellitus without complications (principal); I10 Essential (primary) hypertension; E78.5 Hyperlipidemia, unspecified; E03.9 Hypothyroidism, unspecified; E55.9 Vitamin D deficiency, unspecified; E53.8 Deficiency of other specified B group vitamins ==

== ENCOUNTER → 2024-04-02 | Outpatient (CLI) | payer MEDICARE | END | disposition home or self-care (01) | LOC: LAB 09:15 | PROVIDERS: ATTEND Internal Medicine Endocrinology, Diabetes & Metabolism | DX: I10 Essential (primary) hypertension (principal); E11.9 Type 2 diabetes mellitus without complications; E78.5 Hyperlipidemia, unspecified; E03.9 Hypothyroidism, unspecified; E53.8 Deficiency of other specified B group vitamins; E55.9 Vitamin D deficiency, unspecified ==

== ENCOUNTER → 2024-09-03 | Outpatient (CLI) | payer MEDICARE ==
[~2024-09-03] MED LIST changes: +ASPIRIN ADULT L81 M2 PO; +ATORVASTATIN CA40 M1 PO; +CIPRO500 MG PO; +GOOD NEIGHBOR L10 MG PO; +IMDUR SA30 MG PO; +LEVOXYL150 MCG PO; +LIPITOR20 MG PO; +METOPROLOL SUCC25 M2 PO; +MONTELUKAST SOD10 MG PO; +MYRBETRIQ25 M1 PO; +ONETOUCH ULTRA1 EACH MC; +REPAGLINIDE2 M1 PO; +TRAD5TAB1 PO; +VESICARE10 MG PO; +VITAMIN D350 MC2 PO
== END | disposition home or self-care (01) ==
LOC: US 03:06
PROVIDERS: ATTEND Family Medicine
DX: M79.604 Pain in right leg (principal); M79.605 Pain in left leg; R60.0 Localized edema